=== PATIENT | male | born 2000 | race Caucasian/White ===

== ENCOUNTER 2025-01-21 16:28 | Emergency (ER) | payer SELFPAY ==
--- NOTE | ~2025-01-21 | XR_ITS ---
CLINICAL HISTORY: short of breath, back pain 2 view chest x-ray Comparison: None Findings: The lungs are clear. Normal size heart. No acute fracture. IMPRESSION: 1. No acute findings. This document has been electronically signed by: Ziggy Rene MD on 01/21/2025 17:22:25
[2025-01-21 16:33] VITALS: BP 132/75; PULSE 92; RESP 20; TEMP 36.9; O2SAT 99; BMI 35.5
--- NOTE | 2025-01-21 16:33 | ED.GENADULT ---
HPI - General Adult General Chief complaint: Dyspnea Stated complaint: sob, pain in back Time Seen by Provider: 01/21/25 17:34 Source: patient, RN notes reviewed and old records reviewed Mode of arrival: ambulatory Limitations: no limitations History of Present Illness ED Provider: Kol[facility] narrative: Patient is a 24-year-old male presenting with complaint of shortness of breath and back pain, occasional cough x 3 days. Denies fevers. Denies chest pain or palpitations. Denies recent travel. Denies recent calf pain or swelling. Denies hemoptysis. complaint: cough Onset (ago): day(s) Related Data Allergies Allergy/AdvReac Type Severity Reaction Status Date / Time Penicillins Allergy Anaphylaxis Verified 01/21/25 16:36 Review of Systems Review of Systems: As per HPI Yes all other systems are reviewed and are negative Constitutional: Constitutional: Reports as per HPI [facility] Social History Social History Do you have a plan to hurt others: No Plan Physical Exam ED Vital Signs: Vital Signs - 24 hr 01/21/25 16:33 Temperature 98.4 F Pulse Rate 92 Respiratory Rate 20 Blood Pressure 132/75 Pulse Oximetry 99 Oxygen Delivery Method Room Air BMI result Body Mass Index 35.5 Vital signs have been reviewed and appear to be correct. Blood pressure normal. Heart rate normal. Respiratory rate normal. Temperature normal. Oxygen saturation normal. Const General: cooperative, healthy appearing and no acute distress Orientation/consciousness: oriented to person, oriented to place, oriented to time and patient oriented x3 Limitations: no limitations HENMT Head: Yes normocephalic and Yes atraumatic Ears: external ears normal General nose exam: Normal external nose present Face and sinus: Yes face symmetric Mouth: oropharynx normal and moist mucous membranes Throat: Yes uvula midline Eyes Pupils: Equal, round and reactive pupils present Neck Neck: Yes normal visual inspection and Yes supple Resp Effort & Inspection: normal respiratory effort and able to speak in complete sentences Auscultation: clear to auscultation bilaterally Cardio Rate: regular rate Rhythm: regular rhythm Heart sounds: S1 normal heart sound present and S2 normal heart sound present GI Palpation (GI): Soft to palpation and nontender Auscultation: normoactive bowel sounds General: Yes no CVA tenderness Back/Spine/Pelvis Back: no CVA tenderness Skin General skin exam: elasticity normal and turgor normal Neuro General: oriented to person, oriented to place, oriented to time, patient oriented x3, moves all extremities, no focal motor deficits and CN's II-XI intact bilaterally Cranial nerves: Yes Equal, round and reactive pupils present Cognition (Neuro): normal cognition Extrem General: Yes full ROM, Yes no pedal edema and Yes no calf tenderness Psych Mental Status: mental status grossly normal Affect: normal affect Thought process: Normal thought process present Course Course Course Narrative: This is a rapid medical exam performed by Chiqui Jarertt NP: Additional HPI, ROS, PE not included below will be deferred to primary provider. 01/21/25 16:34 Patient is a 24-year-old male presenting with complaint of shortness of breath and back pain, occasional cough x 3 days. Denies fevers. Plan: viral swab, cxr Medical Decision Making Medical Decision Making [facility] Narrative: Patient is a 24-year-old male presenting with complaint of shortness of breath and back pain, occasional cough x 3 days. On exam patient is awake, A+Ox3, VS WNL, afebrile, normal neurological exam without focal deficits, physical exam findings as above. Given reported symptoms and physical exam findings, initial differential includes but is not limited to Viral illness, COVID, flu, RSV, bronchitis, pneumonia. Do not suspect PE, PERC negative. Viral serology negative. X-ray chest notable for no evidence of pneumonia. My interpretation is in agreement with the radiologist's interpretation. Lungs clear throughout. Results discussed with patient and all questions answered. Patient does note that he recently quit smoking around 3 months ago after smoking for 8 years. Discussed with patient that his symptoms could be due to viral illness, could also be due to his long feeling after recently quit smoking. Return precautions discussed. Follow up with PCP as needed. Patient verbalized understanding of and agreement with plan. Differential Diagnosis Differential Diagnoses: The differential diagnosis associated with the presentation includes As per [facility] Lab Data [facility] Lab Attestation statement: I reviewed the patient's lab results. as per [facility] Labs: Lab Results 01/21/25 Range/Units 16:42 Influenza Type A (PCR) NEGATIVE (Negative) Influenza Type B (PCR) NEGATIVE (Negative) RSV RNA Qual (PCR) NEGATIVE (Negative) SARS-CoV-2 RNA (RT-PCR) NEGATIVE (Negative) Independent Interpretation I performed an independent interpretation of an: Plain X-Ray Interpretation: no evidence of pneumonia on chest x-ray Radiology Impression Discussion of test interpretation with radiology: I have reviewed the radiologist's reading. Radiologist Impression: 2 view chest x-ray Comparison: None Findings: The lungs are clear. Normal size heart. No acute fracture. IMPRESSION: 1. No acute findings. External Record Review External record reviewed: Inpatient record, Office record and Outpatient record Discharge Plan Discharge Clinical Impression: Upper respiratory infection, viral Patient Disposition: Home, Self-Care Instructions: Upper Respiratory Infection (DC), Viral Syndrome (ED) Additional Instructions: You were evaluated in the emergency department today for cough. Your Covid, flu, RSV tests were all negative. Your x-ray did not show evidence of pneumonia. Your symptoms are likely related to a viral illness which will resolve on its own with time and rest. You should ensure adequate fluid intake, and can use Tylenol 650 mg or ibuprofen 600 mg every 6 hours as needed for fever or discomfort. We also recommend using over the counter nasal saline spray to thin your mucous. Please follow-up with your primary care provider this week. Return to the emergency department if you develop chest pain, worsening shortness of breath, difficulty swallowing, fever 100.4? F or greater or any other concerning symptoms. Stand Alone Forms: Work/School Release Print Language: American
[2025-01-21 17:23] LABS: Influenza A PCR NEGATIVE (Negative); Influenza B PCR NEGATIVE (Negative); Resp Syncy Virus RNA Qual PCR NEGATIVE (Negative); SARS COV2 PCR INHOUSE NEGATIVE (Negative)
[2025-01-21 17:54] VITALS: BP 132/75; PULSE 92; RESP 20; TEMP 36.9; O2SAT 99
== END 2025-01-21 17:55 | disposition home or self-care (01) ==
LOC: HO.ED 17:51
PROVIDERS: Registered Nurse Emergency; Emergency Provider Emergency Medicine Emergency Medical Services
DX: J06.9 Acute upper respiratory infection, unspecified (principal); R06.02 Shortness of breath; R05.9 Cough, unspecified; Z03.818 Encounter for observation for suspected exposure to other biological agents ruled out
CPT/HCPCS: 0241U; 71046; 99282; 99283

== ENCOUNTER → 2025-01-21 16:37 | Outpatient (BNV) | payer SELFPAY | PROVIDERS: Emergency Provider Emergency Medicine Emergency Medical Services; Visit Provider Radiology Diagnostic Radiology | DX: R06.02 Shortness of breath (principal); M54.9 Dorsalgia, unspecified | CPT/HCPCS: 71046 ==

== ENCOUNTER 2025-04-20 22:47 | Emergency (ER) | payer SELFPAY ==
[2025-04-20 22:53] VITALS: BP 102/87; PULSE 110; RESP 20; TEMP 36.4; O2SAT 98; BMI 35.5
--- NOTE | 2025-04-21 01:17 | ED_ITS ---
HPI - Skin/Abscess/Foreign Bdy General Chief complaint: Skin/Abscess/Foreign Body Stated complaint: jock itch? Time Seen by Provider: 04/21/25 00:53 Source: patient Mode of arrival: ambulatory Limitations: no limitations History of Present Illness ED Provider: CRISTOBAL STALLWORTH narrative: 25 yo male no PMH here with c/o penile bumps he noted today that are itchy. He has no dysuria, pain, fevers, discharge. He only has sex with his . MD complaint: rash Onset (ago): day(s) (1) Location: genitals Severity: mild Quality: pruritic Relieving factors: none Exacerbating factors: none Context: none Associated symptoms: denies other symptoms Related Data Allergies Allergy/AdvReac Type Severity Reaction Status Date / Time Penicillins Allergy Anaphylaxis Verified 04/20/25 22:56 Review of Systems Review of Systems: Constitutional : No Fever, No Chills ENT/Mouth : No sore throat, No Rhinorrhea Eyes: No Eye Pain, No Swelling, No Redness Cardiovascular : No Chest Pain, No SOB Respiratory : No Cough, No Sputum Gastrointestinal : No Nausea, No Vomiting, No Diarrhea, No abdominal Pain Genitourinary : No Dysuria, No Hematuria, no discharge Musculoskeletal : No joint pain, No Myalgias, No Joint Swelling Skin : no skin rash, pos skin lesions All other systems reviewed and are negative [facility] Past Medical History Attestation statement: The following information was validated with the patient. Source: old records reviewed Medical History No pertinent past medical history Social History Social History (Updated 04/21/25 @ 01:28 by Sharmaine Hanks DO) Patient Tobacco Use Status: Tobacco use Unknown Physical Exam Vital Signs: Vital Signs: Last Vital Signs Temp 97.5 F 04/20/25 22:53 Pulse 110 H 04/20/25 22:53 Resp 20 04/20/25 22:53 BP 102/87 04/20/25 22:53 Pulse Ox 98 04/20/25 22:53 O2 Del Method Room Air 04/20/25 22:53 BMI result Body Mass Index 35.5 Appearance: Alert. Oriented X3. No acute distress. Eyes: Pupils equal, round and reactive to light. ENT: Pharynx normal. Neck: Normal inspection. CVS Pulses normal. Respiratory: No respiratory distress. Abdomen: soft no pain Penis: on tip of penis along shaft lateral aspect left side there are three minute size hard bumps but no rash, redness, ttp, ulcers, no discharge, no swelling Skin: Skin warm and dry. Normal skin color. Extremities: No lower extremity edema. Neuro: Oriented X 3. No motor deficit. No sensory deficit. CN2-12 intact Medical Decision Making Medical Decision Making MDM Narrative: 25 yo male with no sig PMH here with c/o lesions on the penis but no systemic symptoms and on exam they are minute and I cannot tell if they are warts or just follicles. He has no other symptoms they are not papules and they are not ulcerated or painful. He will be referred to outpatient follow up for recheck - discussed safe sex Differential Diagnosis Differential Diagnoses: The differential diagnosis associated with the presentation includes warts, rash, undeclared lesion Independent Historian Clinical information obtained from an independent historian. History obtained from or confirmed by: Spouse Prescription Management I considered prescription management with: Other Discharge Plan Discharge Clinical Impression: Penile lesion Patient Disposition: Home, Self-Care Additional Instructions: rash not consistent with syphillis or herpes at this time would do a repeat skin check with [facility] return for any worsening symptoms concerns safe sex - use condoms [facility] [address] [place] [address] [address] [facility] [phone] Print Language: Portuguese
[2025-04-21 01:25] VITALS: BP 118/71; PULSE 91; RESP 16; TEMP 36.4; O2SAT 97
== END 2025-04-21 01:26 | disposition home or self-care (01) ==
PROVIDERS: Emergency Provider Emergency Medicine
DX: N48.21 Abscess of corpus cavernosum and penis (principal); B35.6 Tinea cruris
CPT/HCPCS: 99283

== ENCOUNTER 2025-05-22 16:30 | Emergency (ER) | payer MEDICAID, SELFPAY ==
--- NOTE | ~2025-05-22 | XR_ITS ---
CLINICAL HISTORY: pain mid low back, L leg weakness pain Three views of the lumbar spine. COMPARISON: None provided. FINDINGS: Five [id number] lumbar type vertebral bodies. Mild leftward curvature of the lower lumbar spine. Vertebral body heights are maintained. No evidence of acute vertebral body injury. Vertebral disc space heights are maintained. No significant degenerative changes. Visualized portions of the bones of the pelvis appear intact. IMPRESSION: 1. Mild leftward curvature of the lower lumbar spine. This document has been electronically signed by: Hubert Kiser MD on 05/22/2025 17:23:29
[2025-05-22 16:34] VITALS: BP 118/61; PULSE 92; RESP 17; TEMP 37.1; O2SAT 94; BMI 41.0
--- NOTE | 2025-05-22 16:35 | ED.BACK ---
HPI - Back Pain/Injury General Chief Complaint: Back Pain/Injury Stated Complaint: lower back pain Time Seen by Provider: 05/22/25 18:57 Source: patient, family ( Spouse) and cloth classer Mode of arrival: ambulatory Limitations: no limitations History of Present Illness ED Provider: DR. Samson HPI Narrative: Patient is a 25-year-old male who presents emergency department for evaluation of low back pain since yesterday, reporting that he injured his lower back back at home 3 months ago moving furniture, resulting in mid lower back pain, alleviated with conservative treatment after about 4 days. Yesterday he walked upstairs to the 4th floor, felt onset of pain again progressively worsening, throbbing sensation along the mid lower spine, having subjective weakness to the left lower extremity and pain. Denies fevers, chills, bladder bowel dysfunction, genitourinary symptoms, recreation drug/IVDA/alcohol usage. Took Tylenol today without improvement. Ambulatory with an antalgic gait, no urinary or stool incontinence. Related Data Previous Rx's ?Medication ?Instructions ?Recorded cyclobenzaprine 10 mg tablet 10 mg PO BEDTIME PRN muscle spasm 05/22/25 #7 tabs ibuprofen 800 mg tablet 800 mg PO Q8H PRN pain #14 tabs 05/22/25 oxycodone 5 mg tablet 5 mg PO Q8H PRN pain #5 tabs 05/22/25 Allergies Allergy/AdvReac Type Severity Reaction Status Date / Time Penicillins Allergy Anaphylaxis Verified 05/22/25 16:36 Review of Systems Review of Systems: all other systems are reviewed and are negative Constitutional: Reports as per HPI and Reports no additional constitutional complaints Eyes: Reports as per HPI and Reports no additional eye complaints Reports system reviewed and no additional complaints, except as documented Cardiovascular: Reports as per HPI and Reports no additional cardiovascular complaints Respiratory: Reports as per HPI and Reports no additional respiratory complaints Gastrointestinal: Reports as per HPI and Reports no additional gastrointestinal complaints Genitourinary: Reports no additional female genitourinary complaints Musculoskeletal: Reports no additional musculoskeletal complaints Skin/Breast: Reports system reviewed and no additional complaints, except as docu Psychiatric: Reports no additional psychiatric complaints Endocrine: Reports no additional endocrine complaints Hematologic/Lymphatic: Reports no additional hematologic/lymphatic complaints Allergic/Immunologic: Reports no additional allergic/immunologic complaints Reports system reviewed and no additional complaints, except as documented and Reports Abnormal speech present PMFSH Past Medical History Medical History No pertinent past medical history Social History Social History Patient Tobacco Use Status: Tobacco use Unknown Smoked in Last 30 Days: No Use of substances other than those prescribed or required for medical reasons: No Advance Directives: No Advance Directives Information Provided: No Do you have a plan to hurt others: No Plan Physical Exam Vital Signs: Vital Signs: Last Vital Signs Temp 97.4 F 05/22/25 19:12 Pulse 73 05/22/25 19:12 Resp 20 05/22/25 19:12 BP 128/65 05/22/25 19:12 Pulse Ox 99 05/22/25 19:12 O2 Del Method Room Air 05/22/25 19:12 BMI result Body Mass Index 41.0 Vital signs have been reviewed and appear to be correct. Blood pressure elevated. Heart rate normal. Respiratory rate normal. Temperature normal. Oxygen saturation normal. Appearance: Alert. Oriented X3. No acute distress. Head: Normal external exam. Normocephalic. Atraumatic. No Hicks signs noted. No raccoon eyes noted Eyes: PERRLA. EOMI. Conjunctiva and sclera normal. Eyelids normal. ENT: TM's Normal. Pharynx normal. Uvula midline. Moist mucous membranes. No trismus noted. No drooling noted. No muffled voice noted. Neck: Normal inspection. Neck supple. FROM. No adenopathy. Thyroid Normal. No meningeal signs. No neck mass noted. CVS: Normal heart rate and rhythm. Heart sound normal. No murmurs noted. Pulses normal throughout. Respiratory: No respiratory distress. Painless inspiration. Breath sounds normal. No wheezes/rales/rhonchi noted. Chest nontender. No accessory muscle usage noted or decreased air movement noted. Abdomen: Soft and nontender. Bowel sounds normal in all 4 quadrants. No distention noted. No organomegaly noted. No visible injury noted. Back: No CVA tenderness. mid lower back pain, reproducible tender point to the lower lumbar area , no step-off, no deformity, lumbar spine curvature to the left side, Diffuse paravertebral muscle spasm. Skin: Skin warm and dry. Normal skin color. Normal skin turgor. No rashes/lesions/lacerations noted. Extremities: No lower extremity edema. Extremities exhibit normal range of motion. Extremities nontender. Neuro: Oriented X 3. Cranial nerve exam: II-XII are grossly intact No motor deficit. No sensory deficit. Reflexes normal. Course Course Course Narrative: This is an RME performed by Sonu Jones, STACKING MACHINE OPERATOR: Additional HPI, ROS, PE not included below will be deferred to primary provider. With low back pain since yesterday. Reevaluation(s) Reevaluation #1: Feels better, able to ambulate better, no fever, no chills or history of IV drug abuse epidural abscess is unlikely patient with history of old low back injury that was triggered by climbing stairs yesterday. X raise reveals lumbar spine left curvature, no fracture. Time: 20:43 Medications Administered Discontinued Medications Generic Name Dose Route Start Last Admin Trade Name Freq PRN Reason Stop Dose Admin Diazepam 2 mg 05/22/25 19:21 05/22/25 19:28 Diazepam 2 Mg Tablet PO 05/22/25 19:22 2 mg ONCE ONE Administration Ibuprofen 800 mg 05/22/25 19:21 05/22/25 19:27 Ibuprofen 800 Mg Tablet PO 05/22/25 19:22 800 mg ONCE ONE Administration Oxycodone HCl 5 mg 05/22/25 19:21 05/22/25 19:28 Oxycodone Hcl Immed Release 5 Mg Tablet PO 05/22/25 19:22 5 mg ONCE ONE Administration Medical Decision Making Differential Diagnosis Differential Diagnoses: The differential diagnosis associated with the presentation includes ( epidural abscess, lumbar spine fracture, lumbar muscle sprain.) Admission/Observation Consideration of admission/observation: Escalation of care including admission/observation considered Independent Interpretation I performed an independent interpretation of an: Plain X-Ray ( Lumbar spine: Mild leftward curvature of the lower lumbar spine.) Radiology Impression Discussion of test interpretation with radiology: I have reviewed the radiologist's reading. Discharge Plan Discharge Clinical Impression: Strain of lumbar region Patient Disposition: Home, Self-Care Instructions: Back Pain (ED) Additional Instructions: rest for 3-4 days refrain from heavy lifting or bending. Prescriptions: New ibuprofen 800 mg tablet 800 mg PO Q8H PRN (Reason: pain) Qty: 14 0RF oxycodone 5 mg tablet 5 mg PO Q8H PRN (Reason: pain) Qty: 5 0RF Rx Instructions: Partial Fill upon patient request. cyclobenzaprine 10 mg tablet 10 mg PO BEDTIME PRN (Reason: muscle spasm) Qty: 7 0RF Stand Alone Forms: Work/School Release Print Language: Albanian
[2025-05-22 19:12] VITALS: BP 128/65; PULSE 73; RESP 20; TEMP 36.3; O2SAT 99
[2025-05-22] MEDS: oxyCODONE HCl Immed Release 5 MG TABLET PO (19:28)
[2025-05-22 21:09] VITALS: BP 128/65; PULSE 73; RESP 20; TEMP 36.3; O2SAT 99
== END 2025-05-22 21:31 | disposition home or self-care (01) ==
PROVIDERS: Emergency Provider Emergency Medicine
DX: S39.012A Strain of muscle, fascia and tendon of lower back, initial encounter (principal); M79.605 Pain in left leg; X58.XXXA Exposure to other specified factors, initial encounter; Y93.9 Activity, unspecified; Y92.9 Unspecified place or not applicable; Y99.8 Other external cause status
CPT/HCPCS: 72100; 99283; 99284

== ENCOUNTER → 2025-05-22 16:40 | Outpatient (BNV) | payer MEDICAID, SELFPAY | PROVIDERS: Visit Provider Radiology Diagnostic Radiology | DX: M54.50 Low back pain, unspecified (principal) | CPT/HCPCS: 72100 ==